=== PATIENT | female | born 1935 | race Caucasian/White ===

== ENCOUNTER 2018-10-05 10:52 | Observation (INO) | payer MEDICARE, OTHER ==
[2018-10-05 11:55] LABS: ADD MAN DIFF? NO
[2018-10-05 11:59] LABS: WHITE BLOOD COUNT 7.2 10^3/ul (4.8-10.8)
[2018-10-05 11:59] LABS: BASOPHILS % 0.6 % (0.0-2.0); EOSINOPHILS # 0.1 10^3/ul (0.0-0.5); EOSINOPHILS % 1.3 % (0.0-7.0); HEMATOCRIT 35.5 % (37.0-47.0); HEMOGLOBIN 11.9 g/dl (12.0-16.0); LYMPHOCYTES # 1.8 10^3/ul (0.8-2.9); LYMPHOCYTES % 24.5 % (15.0-51.0); MEAN CORPUSCULAR HEMOGLOBIN 30.1 pg (29.0-33.0); MEAN CORPUSCULAR HGB CONC 33.5 g/dl (32.0-37.0); MEAN CORPUSCULAR VOLUME 89.6 fl (82.0-101.0); MONOCYTE # 0.5 10^3/ul (0.3-0.9); NEUTROPHIL # 4.8 10^3/ul (1.6-7.5); NEUTROPHILS % 66.3 % (39.0-77.0); PLATELET COUNT 262 10^3/UL (140-415); RED BLOOD COUNT 3.96 10^6/ul (4.20-5.40); RED CELL DISTRIBUTION WIDTH 12.9 % (11.5-14.5)
[2018-10-05] MEDS: SOD CHLORIDE 0.9% 500 ML IV (12:12)
[2018-10-05 12:22] LABS: INR 0.98; PARTIAL THROMBOPLASTIN TIME 27.7 Sec (23.0-35.0); PROTIME 13.1 Sec (11.9-14.9)
[2018-10-05 12:27] LABS: ALBUMIN 4.4 g/dl (3.3-4.9); ALBUMIN/GLOBULIN RATIO 1.57; ALKALINE PHOSPHATASE 53 IU/L (42-121); ANION GAP 16 (5-13); ASPARTATE AMINO TRANSFERASE 18 IU/L (15-46); BILIRUBIN,INDIRECT 0.4 mg/dl (0-1.1); BILIRUBIN,TOTAL 0.4 mg/dl (0.2-1.3); BLOOD UREA NITROGEN 17 mg/dl (7-20); CALCIUM 9.9 mg/dl (8.4-10.2); CARBON DIOXIDE 25 mmol/L (21-31); CHLORIDE 103 mmol/L (97-110); CREATININE 0.85 mg/dl (0.44-1.00); GLUCOSE 180 mg/dl (70-220); POTASSIUM 4.2 mmol/L (3.5-5.1); SODIUM 144 mmol/L (135-144); TOTAL PROTEIN 7.2 g/dl (6.1-8.1)
[2018-10-05 12:31] LABS: ALANINE AMINOTRANSFERASE < 6 IU/L (13-69)
[2018-10-05 12:36] LABS: ADD UMIC YES; UR ASCORBIC ACID NEGATIVE (NEGATIVE); UR BILIRUBIN (Dip) NEGATIVE (NEGATIVE); UR BLOOD (Dip) NEGATIVE (NEGATIVE); UR CLARITY CLEAR (CLEAR); UR COLOR YELLOW (YELLOW); UR GLUCOSE (Dip) NEGATIVE (NEGATIVE); UR KETONES (Dip) TRACE mg/dL (NEGATIVE); UR LEUKOCYTE ESTERASE (Dip) NEGATIVE Leu/ul (NEGATIVE); UR MUCUS FEW /HPF (NONE SEEN); UR NITRITE (Dip) NEGATIVE (NEGATIVE); UR RBC 1 /HPF (0-5); UR SPECIFIC GRAVITY (Dip) 1.031 (1.003-1.030); UR TOTAL PROTEIN (Dip) 1+ mg/dl (NEGATIVE); UR UROBILINOGEN (Dip) 1+ mg/dL (NEGATIVE); UR WBC 2 /HPF (0-5)
[2018-10-05 12:38] LABS: TROPONIN-I < 0.012 ng/ml (0.000-0.120)
[2018-10-05 12:43] LABS: FREE THYROXINE INDEX (Calc) 2.35 ug/ml (0.65-3.89); T4 (THYROXINE) 8.4 ug/dl (5.5-11.0)
[2018-10-05] MEDS ORDERED: ACETAMINOPHEN 325 MG TAB PO ×2 (13:30→14:00)
[2018-10-05] MEDS ORDERED: ONDANSETRON 4 MG INJ IV ×2 (13:30→14:00)
[2018-10-05] MEDS ORDERED: NACL 0.9% 3 ML SYG IV (14:00)
[2018-10-05] MEDS: [UNRECOGNIZED DRUG - REMARK] XX (14:30)
[2018-10-05] MEDS: CYANOCOBALAMIN 2500 MCG XX (14:30)
[2018-10-05] MEDS ORDERED: DEXTROSE 50% 50 ML SYRINGE IV ×2 (15:30)
[2018-10-05] MEDS ORDERED: GLUCAGON 1 MG INJ IM (15:30)
[2018-10-05] MEDS ORDERED: GLUCOSE GEL 15 GRAM TUBE BUCCAL (15:30)
[2018-10-05] MEDS ORDERED: GLUCOSE GEL 15 GRAM TUBE PO ×2 (15:30)
[2018-10-05] MEDS: SOD CHLORIDE 0.9% 1,000 ML IV (17:04)
[2018-10-05] MEDS: INSULIN ASPART [NOVOLOG] 3 ML PEN SC ×2 (17:11→21:00)
[2018-10-05] MEDS: FISH OIL 1,000 MG CAP PO (20:38)
[2018-10-05] MEDS: DOCUSATE SODIUM 100 MG CAP PO (20:39)
[2018-10-05] MEDS: ATORVASTATIN 40 MG TAB PO (20:39)
[2018-10-05] MEDS: LEVETIRACETAM 250 MG TAB PO (22:00)
[2018-10-06] MEDS: PHENAZOPYRIDINE 100 MG TAB PO ×4 (00:43→21:05)
[2018-10-06] MEDS: ACCU-CHEK XX (02:00)
[2018-10-06] MEDS: ZOLPIDEM 5 MG TAB PO (02:30)
[2018-10-06] MEDS: hydrALAzine 20 MG INJ IV (04:18)
[2018-10-06] MEDS: PANTOPRAZOLE (EC) 40 MG TAB PO (05:28)
[2018-10-06 07:48] LABS: ADD MAN DIFF? NO
[2018-10-06 07:54] LABS: WHITE BLOOD COUNT 7.2 10^3/ul (4.8-10.8)
[2018-10-06 07:54] LABS: BASOPHIL # 0.1 10^3/ul (0.0-0.1); BASOPHILS % 0.7 % (0.0-2.0); EOSINOPHILS # 0.2 10^3/ul (0.0-0.5); EOSINOPHILS % 2.6 % (0.0-7.0); HEMATOCRIT 35.7 % (37.0-47.0); HEMOGLOBIN 11.8 g/dl (12.0-16.0); LYMPHOCYTES # 1.7 10^3/ul (0.8-2.9); LYMPHOCYTES % 23.4 % (15.0-51.0); MEAN CORPUSCULAR HEMOGLOBIN 29.6 pg (29.0-33.0); MEAN CORPUSCULAR HGB CONC 33.1 g/dl (32.0-37.0); MEAN CORPUSCULAR VOLUME 89.5 fl (82.0-101.0); MEAN PLATELET VOLUME 10.4 fl (7.4-10.4); MONOCYTE # 0.5 10^3/ul (0.3-0.9); MONOCYTES % 7.3 % (0.0-11.0); NEUTROPHIL # 4.7 10^3/ul (1.6-7.5); NEUTROPHILS % 65.6 % (39.0-77.0); PLATELET COUNT 250 10^3/UL (140-415); RED BLOOD COUNT 3.99 10^6/ul (4.20-5.40); RED CELL DISTRIBUTION WIDTH 12.7 % (11.5-14.5)
[2018-10-06 08:08] LABS: HEMOGLOBIN A1C 6.4 % (0-5.9)
[2018-10-06 08:20] LABS: ALANINE AMINOTRANSFERASE 22 IU/L (13-69); ALBUMIN 3.9 g/dl (3.3-4.9); ALBUMIN/GLOBULIN RATIO 1.34; ALKALINE PHOSPHATASE 55 IU/L (42-121); ANION GAP 9 (5-13); ASPARTATE AMINO TRANSFERASE 16 IU/L (15-46); BILIRUBIN,INDIRECT 0.7 mg/dl (0-1.1); BILIRUBIN,TOTAL 0.7 mg/dl (0.2-1.3); BLOOD UREA NITROGEN 13 mg/dl (7-20); CALCIUM 9.2 mg/dl (8.4-10.2); CARBON DIOXIDE 26 mmol/L (21-31); CHLORIDE 105 mmol/L (97-110); CHOL/HDL RATIO 3.3 RATIO; CHOLESTEROL 116 mg/dl (100-200); CREATININE 0.73 mg/dl (0.44-1.00); GLUCOSE 172 mg/dl (70-220); HDL CHOLESTEROL 35 mg/dl (33-92); LDL CHOLESTEROL,CALCULATED 44 mg/dl; MAGNESIUM 1.1 mg/dl (1.7-2.5); POTASSIUM 3.9 mmol/L (3.5-5.1); SODIUM 140 mmol/L (135-144); TOTAL PROTEIN 6.8 g/dl (6.1-8.1); TRIGLYCERIDES 183 mg/dl (0-149)
[2018-10-06] MEDS: FOLIC ACID 1 MG TAB PO (08:21)
[2018-10-06] MEDS: INSULIN ASPART [NOVOLOG] 3 ML PEN SC ×4 (08:21→21:00)
[2018-10-06] MEDS: FISH OIL 1,000 MG CAP PO ×2 (08:22→21:06)
[2018-10-06] MEDS: LEVETIRACETAM 250 MG TAB PO ×2 (08:22→21:05)
[2018-10-06] MEDS: ASPIRIN (EC) 81 MG TAB PO (08:22)
[2018-10-06] MEDS: SERTRALINE 50 MG TAB PO (08:22)
[2018-10-06] MEDS: CYANOCOBALAMIN 500 MCG TAB PO (08:22)
[2018-10-06] MEDS: MEMANTINE 10 MG TAB PO ×2 (08:22→21:06)
[2018-10-06] MEDS: DOCUSATE SODIUM 100 MG CAP PO ×2 (08:23→21:06)
[2018-10-06] MEDS: AMLODIPINE 5 MG TAB PO ×2 (08:24→12:00)
[2018-10-06] MEDS: MAGNESIUM SULFATE 2 GM/50 ML 50 ML IVPB (11:58)
[2018-10-06] MEDS: ATORVASTATIN 40 MG TAB PO (21:06)
[2018-10-07] MEDS: ACCU-CHEK XX (02:00)
[2018-10-07 05:44] LABS: ADD MAN DIFF? NO
[2018-10-07 05:46] LABS: WHITE BLOOD COUNT 6.6 10^3/ul (4.8-10.8)
[2018-10-07 05:46] LABS: BASOPHIL # 0.1 10^3/ul (0.0-0.1); BASOPHILS % 0.8 % (0.0-2.0); EOSINOPHILS # 0.2 10^3/ul (0.0-0.5); EOSINOPHILS % 2.7 % (0.0-7.0); HEMATOCRIT 33.9 % (37.0-47.0); HEMOGLOBIN 11.3 g/dl (12.0-16.0); LYMPHOCYTES # 1.7 10^3/ul (0.8-2.9); MEAN CORPUSCULAR HEMOGLOBIN 29.7 pg (29.0-33.0); MEAN CORPUSCULAR HGB CONC 33.3 g/dl (32.0-37.0); MEAN CORPUSCULAR VOLUME 89.2 fl (82.0-101.0); MONOCYTE # 0.6 10^3/ul (0.3-0.9); MONOCYTES % 9.1 % (0.0-11.0); NEUTROPHIL # 4.1 10^3/ul (1.6-7.5); NEUTROPHILS % 62.1 % (39.0-77.0); PLATELET COUNT 254 10^3/UL (140-415); RED CELL DISTRIBUTION WIDTH 12.8 % (11.5-14.5)
[2018-10-07] MEDS: PANTOPRAZOLE (EC) 40 MG TAB PO (05:56)
[2018-10-07 06:17] LABS: ANION GAP 10 (5-13); BLOOD UREA NITROGEN 11 mg/dl (7-20); CALCIUM 8.9 mg/dl (8.4-10.2); CARBON DIOXIDE 27 mmol/L (21-31); CHLORIDE 103 mmol/L (97-110); CREATININE 0.86 mg/dl (0.44-1.00); GLUCOSE 177 mg/dl (70-220); MAGNESIUM 1.8 mg/dl (1.7-2.5); PHOSPHORUS 3.6 mg/dl (2.5-4.9); POTASSIUM 3.8 mmol/L (3.5-5.1); SODIUM 140 mmol/L (135-144)
[2018-10-07] MEDS: ASPIRIN (EC) 81 MG TAB PO (08:05)
[2018-10-07] MEDS: FOLIC ACID 1 MG TAB PO (08:05)
[2018-10-07] MEDS: SERTRALINE 50 MG TAB PO (08:06)
[2018-10-07] MEDS: FISH OIL 1,000 MG CAP PO (08:08)
[2018-10-07] MEDS: CYANOCOBALAMIN 500 MCG TAB PO (08:08)
[2018-10-07] MEDS: LEVETIRACETAM 250 MG TAB PO (08:08)
[2018-10-07] MEDS: MEMANTINE 10 MG TAB PO (08:09)
[2018-10-07] MEDS: AMLODIPINE 5 MG TAB PO (08:10)
[2018-10-07] MEDS: INSULIN ASPART [NOVOLOG] 3 ML PEN SC ×2 (08:12→12:10)
[2018-10-07] MEDS: DOCUSATE SODIUM 100 MG CAP PO (08:12)
== END 2018-10-07 15:30 | disposition home or self-care (01) ==
LOC: E/R 10:52 → PP2 13:22
PROVIDERS: Internal Medicine
DX: G30.9 Alzheimer's disease, unspecified (principal); F02.80 Dementia in other diseases classified elsewhere, unspecified severity, without behavioral disturbance, psychotic disturbance, mood disturbance, and anxiety; E11.9 Type 2 diabetes mellitus without complications; I10 Essential (primary) hypertension; E03.9 Hypothyroidism, unspecified; H40.9 Unspecified glaucoma; K21.0 Gastro-esophageal reflux disease with esophagitis; G40.909 Epilepsy, unspecified, not intractable, without status epilepticus; Z88.0 Allergy status to penicillin; Z79.84 Long term (current) use of oral hypoglycemic drugs; Z79.82 Long term (current) use of aspirin
CPT/HCPCS: 36415; 70450; 70551; 71045; 80048; 80053; 80061; 81001; 82962; 83036; 83735; 84100; 84436; 84443; 84479; 84484; 85025; 85610; 85730; 93005; 96360; 97161; 97165; 99217; 99285-25

== ENCOUNTER 2019-03-20 15:07 | Emergency (ER) | payer MEDICARE, OTHER ==
[2019-03-20] MEDS: ACETAMINOPHEN 500 MG TAB PO (16:26)
[2019-03-20] MEDS: DIPHTH/TET/ACEL PERTUSS (ADULT) 0.5 ML VIAL IM* (16:42)
== END 2019-03-20 17:34 | disposition home or self-care (01) ==
LOC: E/R 15:07
DX: S06.0X9A Concussion with loss of consciousness of unspecified duration, initial encounter (principal); S80.02XA Contusion of left knee, initial encounter; S80.01XA Contusion of right knee, initial encounter; S50.02XA Contusion of left elbow, initial encounter; S50.01XA Contusion of right elbow, initial encounter; S00.83XA Contusion of other part of head, initial encounter; E11.9 Type 2 diabetes mellitus without complications; I10 Essential (primary) hypertension; G30.9 Alzheimer's disease, unspecified; W01.0XXA Fall on same level from slipping, tripping and stumbling without subsequent striking against object, initial encounter; Y92.9 Unspecified place or not applicable; Z23 Encounter for immunization; Z79.84 Long term (current) use of oral hypoglycemic drugs; Z79.82 Long term (current) use of aspirin
CPT/HCPCS: 70450; 70486; 72125; 73080-LT; 73080-RT; 73562; 90471; 90715; 99284-25